=== PATIENT | female | born 1995 | race Caucasian/White ===

== ENCOUNTER 2018-01-02 22:50 | Emergency (ER) | payer OTHER ==
--- NOTE | 2018-01-03 00:51 | ED ---
Lower Extremity - HPI Summary HPI Summary: Patient here with right lower extremity pain that started tonight. Reports she was lying in bed when she had an abrupt pain shoot up the front of her she and and wraparound side of her calf and up into her front by. She reports his last for about 10 minutes it was quite painful. It dissipated on its own without any intervention. She denies swelling, redness, fever, chills, chest pain, shortness of breath. 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 She also admits she is walking up stairs more than usual. Reports right ankle fracture at the age of 32 years old without residual issues. No numbness tingling or weakness into this extremity and no other musculoskeletal injuries or issues to report. She admits she is to lift weights however is become unfit in law school and does not exercise like she used to. NOTE: She reports a history of intermittent chest pain with shortness of breath for the past 2 years. This is been worked up by her PCP with labs, EKGs, chest CTs and a stress test - source of symptoms is still unidentified. She continues to use hormonal control despite family history of blood clots. She herself denies history of cancer, trauma, clotting, smoking and no recent travel or prolonged sitting. She is concerned about a clot in this lower extremity and would like a study to rule it out. - History of Current Complaint Chief Complaint: EDExtremityLower Stated Complaint: RT LEG PAIN Time Seen by Provider: 01/02/18 23:04 Hx Obtained From: Patient, Family/Taxicab Dispatcher - boyfriend Pain Intensity: 0 - Allergies/Home Medications Allergies/Adverse Reactions: Allergies Allergy/AdvReac Type Severity Reaction Status Date / Time amoxicillin Allergy Hives Verified 01/02/18 23:01 latex Allergy Hives Verified 01/02/18 23:01 PMH/Surg Hx/FS Hx/Imm Hx Previously Healthy: Yes Endocrine/Hematology History: Denies: Hx Anticoagulant Therapy, Hx Blood Disorders, Hx Thyroid Disease, Hx Anemia - VEGAN - eats well and takes supplements, Hx Unexplained Bleeding, Hx Coagulopothy Respiratory History: Denies: Hx Pulmonary Embolism Musculoskeletal History: Reports: Hx of Fracture(s) - RT ankle 2 y.o. Denies: Hx Arthritis Sensory History: Reports: Hx Contacts or Glasses Opthamlomology History: Reports: Hx Contacts or Glasses Infectious Disease History: No Infectious Disease History: Denies: Traveled Outside the [place] in Last 30 Days - Family History Known Family History: Positive: Other - grandparent w/ clot - Social History Occupation: Student Lives: Dormitory/Roommates Alcohol Use: Rare Hx Substance Use: No Substance Use Type: Reports: None Hx Tobacco Use: No Smoking Status (MU): Never Smoked Tobacco Review of Systems Constitutional: Negative Negative: Fever, Chills, Fatigue Negative: Chest Pain Negative: Shortness Of Breath, Cough Negative: Nausea Positive: no symptoms reported Positive: Arthralgia, Myalgia. Negative: Decreased ROM, Edema Skin: Negative Neurological: Negative Negative: Weakness, Paresthesia, Numbness Positive: Anxious All Other Systems Reviewed And Are Negative: Yes Physical Exam Triage Information Reviewed: Yes Vital Signs On Initial Exam: Initial Vitals Temp Pulse Resp BP Pulse Ox 97.9 F 88 16 132/97 100 01/02/18 22:58 01/02/18 22:58 01/02/18 22:58 01/02/18 22:58 01/02/18 22:58 Vital Signs Reviewed: Yes Appearance: Positive: Well-Appearing, No Pain Distress, Well-Nourished Skin: Positive: Warm, Skin Color Reflects Adequate Perfusion, Dry - no erythema , no ecchymosis over affected area Head/Face: Positive: Normal Head/Face Inspection Eyes: Positive: EOMI ENT: Positive: Hearing grossly normal, Pharynx normal - oral mucosa moist however upper lip is dry, flaking Respiratory/Lung Sounds: Positive: Breath Sounds Present Cardiovascular: Positive: RRR, Pulses are Symmetrical in both Upper and Lower Extremities, Murmur - subtle, S1, S2. Negative: Rub, Leg Edema Left, Leg Edema Right - (-) Darinel's B/L Abdomen Description: Positive: Nontender, Soft Bowel Sounds: Positive: Present Musculoskeletal: Positive: Strength/ROM Intact, Pain @ - mild TTP over Rt anterior tib m - joint laxity B/L (basline) - no pain w/ joint mobility Neurological: Positive: Normal, Sensory/Motor Intact, Alert, Oriented to Person Place, Time, CN Intact II-III Psychiatric: Positive: Anxious - but pleasant and cooperative Diagnostics - Vital Signs Vital Signs Temp Pulse Resp BP Pulse Ox 01/02/18 22:58 97.9 F 88 16 132/97 100 - Laboratory Lab Statement: Any lab studies that have been ordered have been reviewed, and results considered in the medical decision making process. Lower Extremity Course/Dx - Course Course Of Treatment: U/S: no DVT. Suspect musculoskeletal strain/cramp with recent change in footwear changing biomechanics. She also admits to standing longer than usual when walking up many stairs which is unusual for her. There may be a component of cramping from dehydration however she denies recent vomiting or diarrhea and reports she has been eating and drinking well. Discussed option to test labs tonight for things such as hypokalemia, hypomagnesemia, thyroid disorder - patient declines and prefers to have decreased outpatient. She agrees if anything returns or worsens tonight, she will return to the emergency department. Otherwise will follow up with [facility] for outpatient follow-up care. NOTE: Inquired about dry upper lip patient reports this started after a straining of HSV cold sores that she treated with a licorice root balm. Since she stopped using the licorice or balm , her upper lip has been dry. She denies feeling dry otherwise. - Diagnoses Provider Diagnoses: Muscle spasm of right lower extremity Discharge - Sign-Out/Discharge Documenting (check all that apply): Discharge - Discharge Plan Condition: Stable Disposition: HOME Patient Education Materials: Muscle Spasm (ED) Referrals: [facility] - Neeraj DUNHAM [Medical Doctor] - Additional Instructions: Heat, gentle stretches, topical analgesic such as BenGay, etc. Stay hydrated with water, Gatorade, juices, etc. and avoid diuretics such as coffee, tea, ice tea, zbigniew, lemon water, etc. was these may deplete her body of hydration Assessment footwear for most comfort and best fit Follow-up with [facility] this week for assessment of labs if symptoms persist - you may be checked for electrolyte insufficiency and anemia, specifically through CBC, CMP, magnesium labs. Additionally you may have your thyroid checked with a TSH study. Bring discharge instructions to [place] for comprehensive care and continuity of care. - Billing Disposition and Condition Condition: STABLE Disposition: HOME
[2018-01-03 01:09] VITALS: BP 113/66
--- NOTE | 2018-01-03 07:38 | RAD ---
INDICATION: Pain and swelling. COMPARISON: None TECHNIQUE: Duplex interrogation of the Lowerextremity was performed. FINDINGS: Deep veins: The common femoral, great saphenous, profunda femoris, proximal, mid, and distal deep femoral, popliteal, posterior tibial, and peroneal veins are patent. There is normal compressibility, augmentation, and phasic flow. Superficial veins: There are no findings of superficial thrombophlebitis. Popliteal fossa:There is no evidence of a popliteal cyst. Soft tissues:There are no soft tissue abnormalities. IMPRESSION: Normal examination. No evidence of deep venous thrombosis
== END 2018-01-03 01:14 | disposition home or self-care (01) ==
LOC: ED 22:50
DX: M62.831 Muscle spasm of calf (principal); M79.604 Pain in right leg
CPT/HCPCS: 99282

== ENCOUNTER 2018-11-03 10:56 | Emergency (ER) | payer OTHER ==
[2018-11-03 12:08] VITALS: BP 129/81
--- NOTE | 2018-11-03 12:23 | UC ---
Abdominal Pain Female HPI - HPI Summary HPI Summary: 1. intermittent bouts of constipation and diarrhea with blood stool, no fevers, travel or county water supply. 2. had what appeared to the client to be a 12 inch worm in her stool yesterday---she did not save or photo graph it-3. She called he sister who is a vet student who believes it could be a round worm 4. patient is teary and anxious about "something living inside of her". - History of Current Complaint Chief Complaint: UCAbdominalPain Stated Complaint: SKIN COMPLAINT Time Seen by Provider: 11/03/18 12:16 Hx Obtained From: Patient Hx Last Menstrual Period: 2 wks ago ?: No Onset/Duration: Lasting Weeks, Still Present Severity Initially: Mild Severity Currently: Mild Pain Intensity: 1 Pain Scale Used: 0-10 Numeric Location: Diffuse Radiates: No Character: Colicy, Cramping Aggravating Factor(s): Nothing Alleviating Factor(s): Nothing Associated Signs and Symptoms: Positive: Constipation, Diarrhea, Other: - increased appetite and 5 pound weight loss over the past 2 months Allergies/Adverse Reactions: Allergies Allergy/AdvReac Type Severity Reaction Status Date / Time amoxicillin Allergy Hives Verified 11/03/18 12:08 latex Allergy Hives Verified 11/03/18 12:08 Home Medications: Home Medications Control ? Name 1 tab PO DAILY 11/03/18 [History] PMH/Surg Hx/FS Hx/Imm Hx Previously Healthy: Yes Other History Of: Negative For: Anticoagulant Therapy - Surgical History Surgical History: None - Family History Known Family History: Positive: Other - grandparent w/ clot - Social History Occupation: Student Lives: With Family Alcohol Use: Rare Substance Use Type: None Smoking Status (MU): Never Smoked Tobacco Review of Systems All Other Systems Reviewed And Are Negative: Yes Constitutional: Positive: Negative Skin: Positive: Negative Eyes: Positive: Negative ENT: Positive: Negative Respiratory: Positive: Negative Cardiovascular: Positive: Negative Gastrointestinal: Positive: Abdominal Pain, Diarrhea, Other - constipation Genitourinary: Positive: Negative Motor: Positive: Negative Neurovascular: Positive: Negative Musculoskeletal: Positive: Negative Neurological: Positive: Negative Psychological: Positive: Anxious Is Patient Immunocompromised?: No Physical Exam Triage Information Reviewed: Yes Appearance: Well-Appearing, No Pain Distress, Well-Nourished Vital Signs: Initial Vital Signs Temp 98.3 F 11/03/18 12:04 Pulse 69 11/03/18 12:04 Resp 18 11/03/18 12:04 BP 129/81 11/03/18 12:04 Pulse Ox 100 11/03/18 12:04 Vital Signs Reviewed: Yes Eye Exam: Normal Eyes: Positive: Conjunctiva Clear ENT Exam: Normal ENT: Positive: Normal ENT inspection, Hearing grossly normal, Pharynx normal, Nasal congestion. Negative: Trismus, Muffled voice, Hoarse voice, Sinus tenderness, Uvula midline Dental Exam: Normal Neck exam: Normal Neck: Positive: Supple, Nontender, No Lymphadenopathy Respiratory Exam: Normal Respiratory: Positive: Chest non-tender, Lungs clear, Normal breath sounds, No respiratory distress, No accessory muscle use Cardiovascular Exam: Normal Cardiovascular: Positive: RRR, No Murmur, Pulses Normal, Brisk Capillary Refill Abdominal Exam: Normal Abdomen Description: Positive: Nontender, No Organomegaly, Soft. Negative: CVA Tenderness (R), CVA Tenderness (L) Bowel Sounds: Positive: Present Musculoskeletal Exam: Normal Musculoskeletal: Positive: Strength Intact, ROM Intact, No Edema Neurological Exam: Normal Neurological: Positive: Alert, Muscle Tone Normal Psychological Exam: Normal Skin Exam: Normal Abd Pain Female Course/Dx - Course Course Of Treatment: lab studies, stool sample, albendazole, vistaril follow at [facility] as planned, to ED for worsening symptoms-- - Differential Dx/Diagnosis Provider Diagnosis: Gastrointestinal parasites, Anxiety about health Discharge - Sign-Out/Discharge Documenting (check all that apply): Patient Departure All imaging exams completed and their final reports reviewed: No Studies - Discharge Plan Condition: Stable Disposition: HOME Prescriptions: Albendazole 400 mg PO ONCE 1 Days #2 tablet hydrOXYzine pamoate [Vistaril] 25 - 50 mg PO QID PRN #20 capsule PRN Reason: Anxiety Patient Education Materials: Gas and Bloating (ED), Abdominal Pain (ED) Referrals: [facility] [Outside] - 11/08/18 - Billing Disposition and Condition Condition: STABLE Disposition: Home
[2018-11-03 15:29] LABS: ABS Basophils 0 10^3/ul (0-0.2); ABS Eosinophils 0 10^3/ul (0-0.6); ABS Monocytes 0.5 10^3/ul (0-0.8); ABS Neutrophils 1.9 10^3/ul (1.5-7.7); ABS Nucleated RBC 0 10^3/ul; Eosinophil % 0.4 %; Hematocrit 40 % (35-47); Hemoglobin 13.4 g/dl (12.0-16.0); Lymphocyte % 45.4 %; Mean Corpuscular HGB Conc 34 g/dl (31-36); Mean Corpuscular Hemoglobin 31 pg (27-31); Mean Corpuscular Volume 91 fL (80-97); Mean Platelet Volume 9.7 fL (7.4-10.4); Nucleated Red Blood Cells % 0; Platelet Count 217 10^3/ul (150-450); Red Blood Count 4.37 10^6/ul (4.00-5.40); Red Cell Distribution Width 13 % (10.5-15); White Blood Count 4.4 10^3/ul (3.5-10.8)
[2018-11-03 15:34] LABS: Albumin 4.6 g/dL (3.2-5.2); Calcium 9.7 mg/dL (8.6-10.3); Indirect Bilirubin 0.4 mg/dL (0.3-1.0); Potassium 4.7 mmol/L (3.5-5.0); Total Bilirubin 0.5 mg/dL (0.2-1.0)
[2018-11-03 15:39] LABS: Albumin/Globulin Ratio 1.8 (1-3); BUN/Creatinine Ratio 14.5 (8-20); EGFR African American 113.1 (>60); EGFR Non-African American 93.5 (>60); Globulin 2.5 g/dL (2-4); Total Protein 7.1 g/dL (6.4-8.9)
[2018-11-03 15:53] LABS: TSH (Thyroid Stimulating Horm) 1.22 mcIU/mL (0.34-5.60)
--- NOTE | 2018-11-04 08:11 | UC ---
- Progress Note Progress Note: Labs reviewed today: CBCD and CMP and TSH: Within normal limits. No change in plan. Course/Dx - Diagnoses Provider Diagnoses: Gastrointestinal parasites, Anxiety about health Discharge - Sign-Out/Discharge Documenting (check all that apply): Post-Discharge Follow Up All imaging exams completed and their final reports reviewed: No Studies - Discharge Plan Condition: Stable Disposition: HOME Prescriptions: Albendazole 400 mg PO ONCE 1 Days #2 tablet hydrOXYzine pamoate [Vistaril] 25 - 50 mg PO QID PRN #20 capsule PRN Reason: Anxiety Patient Education Materials: Gas and Bloating (ED), Abdominal Pain (ED) Referrals: [facility] [Outside] - 11/08/18 - Billing Disposition and Condition Condition: STABLE Disposition: Home
== END 2018-11-03 13:00 | disposition home or self-care (01) ==
LOC: UCEAST 10:56
DX: B82.9 Intestinal parasitism, unspecified (principal); F41.9 Anxiety disorder, unspecified; Z88.0 Allergy status to penicillin; Z91.040 Latex allergy status
CPT/HCPCS: 36415; 80053; 82248; 84443; 85025; 99212; G0463